=== PATIENT | female | born 1965 | race African-American/Black ===

== ENCOUNTER 2017-10-05 06:58 | Emergency (ER) | payer MEDICAID ==
[~2017-10-05] VITALS: Ht 172.7 cm; Wt 72.6 kg
[2017-10-05 07:00] VITALS: BP 171/98
[2017-10-05] MEDS ORDERED: predniSONE 20 MG TABLET ONE (07:18)
[2017-10-05] MEDS ORDERED: ALBUTEROL FS 2.5 MG/3 ML VIAL.NEB ONE (07:21)
[2017-10-05] MEDS ORDERED: predniSONE 20 MG TABLET PO ONE (07:30)
[2017-10-05] MEDS ORDERED: ALBUTEROL FS 2.5 MG/0.5 ML VIAL.NEB NEB ONE (07:30)
== END 2017-10-05 08:02 | disposition home or self-care (01) ==
LOC: ER 07:03
DX: J45.901 Unspecified asthma with (acute) exacerbation (principal); I10 Essential (primary) hypertension
CPT/HCPCS: 94640; 99283; A4606; J7512; Z7610

== ENCOUNTER 2017-10-19 07:28 | Emergency (ER) | payer MEDICAID ==
[~2017-10-19] VITALS: Ht 172.7 cm; Wt 68.0 kg
[2017-10-19] MEDS ORDERED: predniSONE 20 MG TABLET ONE ×2 (07:51→08:08)
[2017-10-19] MEDS ORDERED: ACETAMINOPHEN ES 500 MG TABLET ONE (07:51)
[2017-10-19] MEDS ORDERED: predniSONE 20 MG TABLET PO ONE (08:00)
[2017-10-19] MEDS ORDERED: ACETAMINOPHEN ES 500 MG TABLET PO ONE (08:00)
[2017-10-19] MEDS ORDERED: ALBUTEROL FS 2.5 MG/3 ML VIAL.NEB CONTNEB ONE (08:00)
[2017-10-19] MEDS ORDERED: IPRATROPIUM NEB FS 0.5 MG/2.5 ML AMPUL.NEB NEB ONE (08:00)
[2017-10-19] MEDS ORDERED: ALBUTEROL FS 2.5 MG/0.5 ML VIAL.NEB ONE (08:05)
[2017-10-19] MEDS ORDERED: IPRATROPIUM NEB FS 0.5 MG/2.5 ML AMPUL.NEB ONE (08:05)
--- NOTE | 2017-10-19 08:23 | NUR ---
PT. 52 Y OLD FEMALE ALERT AND RESPONSIVE HX OF ASTHMA TX'S GIVEN MD ORDER AND NEGAR. WELL. B/S ARE EQUAL WHEEZING AND POST TX'S CLEAR BILATERALLY. COUGH AND SHE MENTIONED SHE HAS HER NEBULIZER AT HOME IN STATE OF ( [place] ) NO ADVERSE REACTION NOTED AND CONTINUE FOR CARE. AMBU BAG AT THE BEDSIDE.
[2017-10-19] MEDS ORDERED: HYDROCODONE/APAP 5/325MG 1 EACH TABLET ONE (09:21)
[2017-10-19] MEDS ORDERED: HYDROCODONE/APAP 5/325MG 1 EACH TABLET PO ONE (09:30)
[2017-10-19 10:06] VITALS: BP 130/80
--- NOTE | 2017-10-19 10:06 | NUR ---
Patient discharged to home in stable condition. Written and verbal after care instructions given. Patient verbalizes understanding of instruction.
== END 2017-10-19 10:07 | disposition home or self-care (01) ==
LOC: ER 07:29
DX: J45.901 Unspecified asthma with (acute) exacerbation (principal); M43.16 Spondylolisthesis, lumbar region; I10 Essential (primary) hypertension
CPT/HCPCS: 72100; 94640 ×2; 99284; A4606; J7512 ×2; Z7610